=== PATIENT | female | born 1995 | race Caucasian/White ===

== ENCOUNTER 2018-04-14 05:59 | Day surgery (SDC) | payer OTHER ==
[2018-04-13 11:50] VITALS: BMI 26.9
[2018-04-14] MEDS ORDERED: Bacitracin Zinc Ointment 30 gm TUBE ONE (06:44)
[2018-04-14] MEDS ORDERED: Bupivacaine PF 0.5% 30 ML VIAL ONE (06:44)
[2018-04-14] MEDS ORDERED: Betamet Acet/Betamet Na Ph 30 MG/5 ML VIAL ONE (06:44)
[2018-04-14] MEDS ORDERED: PROPOFOL 0 ML ONE (06:51)
[2018-04-14] MEDS ORDERED: Fentanyl 100 MCG/2 ML VIAL ONE (06:51)
[2018-04-14] MEDS ORDERED: Midazolam HCl 2 mg/2 ml Vial ONE (07:33)
[2018-04-14] MEDS ORDERED: CEFAZOLIN/Water 2 GM/20 ML SYRINGE ONE (07:33)
[2018-04-14] MEDS ORDERED: Ketorolac Tromethamine 30 MG/ML VIAL ONE ×2 (08:52→09:11)
--- NOTE | 2018-04-14 11:23 | OP ---
DATE OF PROCEDURE: 04/14/2018 SURGEON: Dr. Moise Church ANESTHESIA: General LMA technique augmented by 20 mL 0.5% Marcaine block, 10 given before procedure and 10 given after repair incision technique. PREOPERATIVE DIAGNOSES: 1. Right wrist ganglion, dorsal. 2. Right wrist synovitis. POSTOPERATIVE DIAGNOSES: 1. Right wrist ganglion, dorsal. 2. Right wrist synovitis. FINDINGS: Approximately a 1 cm sessile ganglion cavity, connected to the confluence of the capitate lunate of scaphoid region. PROCEDURES PERFORMED: Arthrotomy right wrist with synovectomy limited to ganglion cystectomy, right wrist. SPECIMEN REMOVED: Ganglion cyst cavity sent to the lab as specimen. TOURNIQUET TIME: 11 minutes. COMPLICATIONS: None. INDICATIONS: Ganglion which comes and goes, was somewhat flattened today, but we knew from previous examination it was just opposite of Wilder's tubercle. Therefore, incision centered on this area. DESCRIPTION OF PROCEDURE: After successful general endotracheal anesthesia, the limb was prepped an d draped. Time out was done appropriately. We outlined the incision zigzag fashion, exsanguinated t he limb, inflated tourniquet to 250 mmHg pressure and gave the first 10 mL of 0.5% Marcaine. We then carried the incision through skin and subcutaneous tissues with an 11 blade knife until we re ached the extensor tendons and found by dissecting just over Wilder's tubercle, there was obvious Lis ter's tubercle just distal to the retinaculum was a bulge consistent with a ganglion cyst cavity. We dissected around it the tendon followed this down to where it was sessile 1 cm long, 4 mm wide and began to elevate it. The elevation led to a small capsule region where we made a 5 mm rent in the capsule just at the confluence of the scaphoid capitate and lunate. We then underneath saw s ome synovitis, did a synovectomy limited of the wrist open. We then deflated the tourniquet, irrigat ed obtained hemostasis. We sent the specimen of the synovitis and the cyst cavity to the lab. After 5 minutes of direct pressure, we obtained hemostasis with electrocautery, subcutaneously, close d only the skin with interrupted 4-0 nylon mattress pattern gave the remaining portion of the injecti on of the Marcaine in a ____ technique, placed a bacitracin, Adaptic, 4 x 4s, Kerlix under a palmar s plint and the patient left the operating room without evidence of anesthetic or operative complicatio n.
[2018-04-14 11:34] LABS: BHCG - Serum Negative (NEGATIVE); Pregs Control Background? CLEAR/WHITE (CLR/WHITE); Pregs Control Bar Appear? YES (CONTROL BAR)
[2018-04-14 11:35] LABS: Anion Gap 12 mmol/L (10-20); BUN (Urea Nitrogen) 10 mg/dL (7.0-18.7); Calc. Creatinine Clearance 137 mL/min (70-130); Calcium 9.2 mg/dL (7.8-10.44); Carbon Dioxide 22 mmol/L (22-29); Chloride 105 mmol/L (98-107); Estimated GFR-MDRD Greater than 90; Glucose 86 mg/dL (70-105); Potassium 3.8 mmol/L (3.5-5.1); Sodium 135 mmol/L (136-145)
[2018-04-14 12:00] LABS: White Blood Cell (WBC) Count 4.7 thou/uL (4.8-10.8)
[2018-04-14 12:01] LABS: #Lymphocytes 1.7 thou/uL (1.20-3.40); #Neutrophils 2.4 thou/uL (1.40-6.50); %Basophils 0.6 % (0.0-1.0); %Eosinophils 3.3 % (0.0-10.0); %Monocytes 9.1 % (0.0-10.0); %Neutrophils 50.1 % (42.0-75.0); Hemoglobin 14.1 g/dL (12.0-16.0); Mean Corpuscular HGB CONC 33.2 g/dL (32.0-36.0); Mean Corpuscular Hemoglobin 29.9 pg (27.0-31.0); Mean Platelet Volume 7.9 fL (7.4-10.4); Platelet Count 289 thou/uL (130-400); RBC Distribution Width 11.9 % (11.5-14.5); Red Blood Cell (RBC) Count 4.72 mill/uL (4.20-5.40)
[2018-04-14 12:02] LABS: #Eosinphils 0.2 thou/uL (0.0-0.7); #Monocytes 0.4 thou/uL (0.11-0.59)
[2018-04-14] MEDS ORDERED: diphenhydrAMINE 50 MG/ML VIAL ONE (13:14)
[2018-04-14] MEDS ORDERED: Metoclopramide HCl 10 MG/2 ML VIAL ONE (13:14)
[2018-04-14] MEDS ORDERED: Dexamethasone 20 MG/5 ML VIAL ONE (13:14)
[2018-04-14] MEDS ORDERED: Ondansetron HCl/PF 4 MG/2 ML Vial ONE (13:14)
[2018-04-14] MEDS ORDERED: Lidocaine 1% PF 5 ML VIAL ONE (13:14)
[2018-04-14] MEDS ORDERED: PROPOFOL 200 MG/20 ML VIAL ONE (13:14)
--- NOTE | 2018-04-15 12:38 | HP ---
DATE OF SERVICE: 04/14/2018 CHIEF COMPLAINT: Right wrist ganglion with swelling dorsally. HISTORY OF PRESENT ILLNESS: The patient reports a 6-month history of dorsal ganglion and swelling in the right wrist that has been persistent. She has had aspiration, has returned; had immobilization, returned; had anti-inflammatory, returned. The patient denies any numbness and tingling. PAST MEDICAL HISTORY: The patient is primary Telugu speaker. She does not smoke. Denies any histo ry of cardiac, pulmonary, neurological disease. Has no numbness or tingling, previous history of car pal tunnel, or neurologic disease distally at the upper extremity or digits. She has not had previou s ganglion before or any other wrist surgery. PHYSICAL EXAMINATION: On examination today, the patient has 60 degrees dorsiflexion, 70 degree s palmar flexion. She has subcutaneous fullness just opposite to the ulna. The Wilder's tubercle al mitzi the confluence of the capitate lunate and scaphoid consistent with what had been a previous gangl ion, but today only a boggy area without true fluctuance or abscess formation. There is no pain with tendon stretch. Extends in the thumb, all digits to include the extensor digiti minimi and extensor indicis proprius intact. There is no Tinel's over superficial radial nerve, superficial ulnar nerve , the median nerve in wrist, ulnar nerve in wrist, or ulnar nerve in the elbow. There is no weakness seen. She has full digital flexion and extension. Radiographs revealed no degenerative changes, cystic changes, or calcifications periarticular at the wrist. ASSESSMENT AND RECOMMENDATIONS: Ganglion cyst, flat today, but [facility], we believe we can find it and remove it in the interval Wilder's tubercle. The refore, she is scheduled for surgical intervention today.
== END 2018-04-14 10:20 | disposition home or self-care (01) ==
LOC: SDC 05:59
PROVIDERS: ATTEND Orthopaedic Surgery Hand Surgery
PROC: 0LB50ZZ Excision of Right Lower Arm and Wrist Tendon, Open Approach (ICD-10-PCS; principal; 2018-04-14)
DX: M67.431 Ganglion, right wrist (principal); M65.831 Other synovitis and tenosynovitis, right forearm
CPT/HCPCS: 80048; 84703; 85025; 88304; J0702; J1100; J1200; J1885; J2001; J2250; J2405; J2704; J2765; J3010; S0020

== ENCOUNTER 2020-05-12 18:06 | Day surgery (SDC) | payer OTHER ==
[2020-05-12 18:51] VITALS: BP 133/76; TEMP 98.1; BMI 34.4
[2020-05-12] MEDS ORDERED: hydrALAZINE 20 MG/ML VIAL SLOW IVP PRN (20:58)
[2020-05-12 21:34] LABS: Creatinine, Urine Less than 20.00 mg/dL (47-110); Protein, Urine Random Quant Less than 10 mg/dL (1-14)
--- NOTE | 2020-05-12 22:47 | PRG ---
DATE OF SERVICE: 05/12/2020 HISTORY OF PRESENT ILLNESS: The patient is a 24-year-old, G1, P0 female with an intrauterine at 37 weeks and 3 days, presenting to Labor and Delivery with concerns of elevated blood pressures at home that she reports have been as high as the 150s on multiple occasions. She denies headache, chest pain, abdominal pain, shortness of breath, sudden change in her weight or unusual swelling or vision changes. She denies fever, cough, nausea, vomiting, diarrhea, constipation, any new rashes, vaginal bleeding, leakage of fluid, urinary urgency, or frequency. PAST MEDICAL HISTORY: Negative. PAST SURGICAL HISTORY: She has had her wisdom teeth removed and has had a ganglion cyst removed. ALLERGIES: NO KNOWN DRUG ALLERGIES. MEDICATIONS: vitamins and iron. SOCIAL HISTORY: Denies drug, alcohol, or tobacco use. OB LABS: Unavailable at the time of dictation. REVIEW OF SYSTEMS: Per HPI. PHYSICAL EXAMINATION: VITAL SIGNS: Initial blood pressure 128/83, heart rate of 88, respiratory rate of 16, temperature 98.1, saturating 98% on room air. Over the subsequent 3 hours, the patient has had predominantly normal range of blood pressures in the one teens to 130s. She has had two blood pressures at 144 and 143, all diastolics have been within normal limits. GENERAL: The patient appears to be in no acute distress. She is alert, oriented, cooperative, and pleasant to interact with. HEAD: Normocephalic, atraumatic. LUNGS: Clear to auscultation bilaterally. HEART: Has a regular rate and rhythm. ABDOMEN: Gravid, soft, nontender. EXTREMITIES: Nontender, nonedematous. DTRs are 1+. No clonus. Cervical exam per nursing staff is 150 and -3 station. heart tracing shows the fetus with a baseline in the 150s with moderate long-term variability, positive 15 x 15 accelerations, no decelerations. Tocometer showing some irritability. Urine protein to creatinine ratio is incalculable as the protein is less than 10 and urine creatinine is less than 20. ASSESSMENT AND PLAN: The patient is a 24-year-old female with an intrauterine at 37 weeks and 3 days, having some elevated blood pressures at home. She has had no persistent pressures here and has had two mild range systolic pressures, one associated with coming back from the bathroom. The patient is otherwise asymptomatic and without proteinuria and an unfavorable cervix. The patient is being discharged home and will follow up with Dr. Rae on Friday. The patient has been reported out to Dr. Rae who has been aware of her visit. Job ID: [id number]
== END 2020-05-12 22:25 | disposition home health service, planned readmission (86) ==
LOC: L&D/OP 18:06
PROVIDERS: ATTEND Obstetrics & Gynecology
DX: O99.891 Other specified diseases and conditions complicating pregnancy (principal); R03.0 Elevated blood-pressure reading, without diagnosis of hypertension; Z3A.37 37 weeks gestation of pregnancy
CPT/HCPCS: 82570; 84156

== ENCOUNTER 2020-05-16 10:52 | Inpatient (IN) | payer OTHER ==
[2020-05-16] MEDS ORDERED: hydrALAZINE 20 MG/ML VIAL SLOW IVP PRN ×2 (11:30→18:21)
[2020-05-16] MEDS ORDERED: Promethazine HCl 25 MG/ML VIAL IM PRN ×2 (11:30→17:32)
[2020-05-16] MEDS ORDERED: Ondansetron PF 4 MG/2 ML Vial IVP PRN ×3 (11:30→18:21)
[2020-05-16] MEDS ORDERED: Bicitra 30 ML UDCUP PO SCH (11:30)
[2020-05-16] MEDS: Lactated Ringer's 1,000 ML IV SCH ×4 (11:30→23:37)
[2020-05-16 11:50] VITALS: BMI 34.4
[2020-05-16 12:18] LABS: Hemoglobin 12.4 g/dL (12.0-16.0); Mean Corpuscular HGB CONC 33.9 g/dL (32.0-36.0); Mean Corpuscular Hemoglobin 29.2 pg (27.0-31.0); Mean Corpuscular Volume 86.2 fL (78.0-98.0); Mean Platelet Volume 10.2 fL (7.4-10.4); Platelet Count 165 thou/uL (130-400); RBC Distribution Width 15.1 % (11.5-14.5); Red Blood Cell (RBC) Count 4.24 mill/uL (4.20-5.40); White Blood Cell (WBC) Count 6.1 thou/uL (4.8-10.8)
[2020-05-16 12:55] LABS: HBSAg Index 0.14 S/CO (0-0.99); Hep B Surf Ag Non-Reactive S/CO (NonReactive); Syphilis Antibody Nonreactive (Nonreactive); Syphilis Antibody Index 0.05 S/CO (<1.00 Non-Reactive)
[2020-05-16] MEDS ORDERED: CEFAZOLIN 2 GM in Premix Bag 1 BAG IVPB SCH (14:00)
[2020-05-16] MEDS ORDERED: PHENYLEPHRINE-NS 100 MCG/ML 10 ML SYRINGE ONE (16:15)
[2020-05-16] MEDS ORDERED: Morphine PF 10 MG/10 ML VIAL ONE (16:15)
[2020-05-16] MEDS ORDERED: Oxytocin 10 UNITS/ML VIAL ONE ×2 (16:15→18:17)
[2020-05-16] MEDS ORDERED: Ondansetron PF 4 MG/2 ML Vial ONE ×2 (16:29→20:42)
[2020-05-16] MEDS ORDERED: Scopolamine 1.5 mg/72 hour Patch ONE (16:29)
[2020-05-16] MEDS ORDERED: Famotidine/PF 20 mg/2ml Vial ONE (16:29)
[2020-05-16] MEDS ORDERED: Ketorolac Tromethamine 30 MG/ML VIAL ONE (17:27)
[2020-05-16] MEDS ORDERED: diphenhydrAMINE 50 MG/ML VIAL IVP PRN (17:32)
[2020-05-16] MEDS ORDERED: Promethazine HCl 25 MG SUPP PR PRN (17:32)
[2020-05-16] MEDS ORDERED: Naloxone HCl 0.4 mg/ml Vial IVP PRN ×2 (17:32)
[2020-05-16] MEDS ORDERED: L&D-Morphine 4 MG/ML VIAL SLOW IVP PRN (17:32)
[2020-05-16] MEDS ORDERED: HYDROmorphone 2 MG/ML VIAL SLOW IVP PRN (17:32)
[2020-05-16] MEDS ORDERED: Ondansetron HCl/PF 4 MG/2 ML Vial IVP PRN (17:32)
[2020-05-16] MEDS ORDERED: Meperidine HCl/PF 25 MG/ML VIAL SLOW IVP PRN (17:32)
[2020-05-16] MEDS ORDERED: Communication Order-Pharmacy FS SCH (17:45)
[2020-05-16] MEDS ORDERED: Acetaminophen 325 MG TAB PO PRN (18:21)
[2020-05-16] MEDS ORDERED: Misoprostol 200 MCG TAB PR PRN (18:21)
[2020-05-16] MEDS ORDERED: Bisacodyl 10 MG SUPP PR PRN (18:21)
[2020-05-16] MEDS ORDERED: Zolpidem Tartrate 5 MG TAB PO PRN (18:21)
[2020-05-16] MEDS ORDERED: Lanolin Ointment 7 GM TUBE TOP PRN (18:21)
[2020-05-16 19:12] LABS: SARS-CoV-2 MS2 Positive; SARS-CoV-2 N Gene Negative; SARS-CoV-2 S Gene Negative; SARS-CoV-2 by NAA Not Detected (NotDetected); SARS-CoV-2 orf1ab Negative
--- NOTE | 2020-05-16 22:44 | OP ---
DATE OF PROCEDURE: 05/16/2020 ATTENDING STAFF PHYSICIAN: Sarkis Rae MD SURGEON: Sarkis Rae MD RESIDENT SURGEON: Juno Cheng MD PREOPERATIVE DIAGNOSES: 1. Term intrauterine at 38 and 0/7 weeks. 2. Gestational hypertension. 3. Contracted pelvis. 4. Large for gestational age. POSTOPERATIVE DIAGNOSES: 1. Term intrauterine at 38 and 0/7 weeks. 2. Gestational hypertension. 3. Cephalopelvic disproportion. PROCEDURES PERFORMED: Primary low-transverse section. ANESTHESIA: Spinal catheterization. FINDINGS: 1. Gestational hypertension with preeclamptic features, including blood pressure, proteinuria, and symptoms. 2. Size greater than dates with estimated weight in excess of 8 pounds at 38 weeks. 3. 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 4. Vigorous male infant, 8 pounds 2 ounces. Apgars nine and 10. 5. Nuchal cord x2. 6. Thick meconium. 7. Cephalopelvic disproportion (CPD). COMPLICATIONS: None. SPECIMENS REMOVED: 1. Cord blood. 2. Placenta to pathology secondary to thick meconium and gestational hypertension. BLOOD LOSS: INDICATIONS: Mrs. Marina Villarreal is a very pleasant 24-year-old white female, G1, P0, who has followed my clinic for obstetric care. Over the last several weeks, Marina's blood pressures have been extremely labile. She was placed at bedrest and no work last week secondary to elevated blood pressures in the 140 to 150s over 90s. Over the weekend, she presented to Labor and Delivery for evaluation secondary to multiple pressures in the 150/90 range. She had trace protein. She was sent home to [facility], to follow up on 05/15/2020. In the office yesterday, her blood pressures were somewhat better measuring in the 130s to 140s over 90s. She did complain of some decreased movement and we had her come back this morning for testing. Her diastolic blood pressures this morning were in the 100s. She also had 2+ protein and a mild headache. Decision was made to proceed with delivery secondary to gestational hypertension with preeclamptic features. Marina had previously made a decision that she wanted to proceed with primary secondary to baby which was measuring large for gestational age and a very small contracted pelvis with some of the issues that were outlined above. She was sent to Labor and Delivery for further monitoring and evaluation and scheduled for primary delivery this evening. The patient and her had been counseled extensively and surgical disclosures have been signed and placed in the chart. Questions have been answered to their satisfaction. DESCRIPTION OF PROCEDURE: After thorough consent and counseling, Mrs. Villarreal was taken the operating room and adequate anesthesia was obtained via spinal catheterization. The patient was prepped and draped in the usual sterile fashion for abdominal surgery. A Bolivar was placed in the bladder, which was noted to be draining clear urine. A team time-out was performed per protocol. Attention was then turned to performing the primary low-transverse section. A Pfannenstiel incision was made, carried sharply to the fascia, which was also sharply incised. The midline was identified and the rectus muscles were retracted laterally. The abdominal peritoneal cavity was entered with usual safeguards carried out. A retractor was placed and a bladder flap was created on the vesicouterine peritoneum. A bladder blade was then placed. A low-transverse incision was made on the well-developed lower uterine segment. Upon entering the amniotic sac, a copious amount of thick meconium-stained fluid was noted. The baby was immediately bulb suctioned on the abdomen. Shoulders and body were then delivered in an atraumatic fashion. He had a double nuchal cord, so thick meconium-stained fluid. Head was delivered. Baby was bulb suctioned on the abdomen. Tight nuchal cord x2 was reduced. Shoulders and body were then delivered in an atraumatic fashion. The cord was doubly clamped and cut. The infant was urgently handed to the pediatric team in attendance for the delivery. The was a vigorous viable male weighing 8 pounds 2 ounces with Apgars of nine and 10 obtained at one and 5 minutes respectively. Cord blood was obtained. The placenta was manually removed from the uterus, will be sent to pathology secondary to thick meconium-stained fluid and gestational hypertension. The uterus was exteriorized and good tone was noted. The uterine cavity was cleared of any remaining clot and fluid. The low-transverse incision was closed with a running locking ligature normal chromic. Several [id number] ligatures were placed to facilitate strengthen hemostasis. The vesicouterine peritoneum was reapproximated to the lower segment with running ligature of 2-0 Monocryl suture. Once again, good tone and hemostasis were appreciated. The posterior cul-de-sac and gutters were cleared of clot and fluid. The sacrum was noted to be extremely prominent and the patient was noted to have an android pelvis with a very small outlet. A diagnosis of cephalopelvic disproportion was made, the uterus, fallopian tubes, and ovaries were inspected and noted to be hemostatic. Seprafilm was applied to the low-transverse incision and to the anterior aspect of the uterus for adhesion prevention. The uterus was returned to the abdomen and good tone hemostasis was once again noted. Lap, sponge, and needle counts were correct. The peritoneum was closed with a running ligature of 2-0 Vicryl suture. Rectus muscles were reapproximated in the midline with interrupted ligatures of 2-0 Vicryl suture. The fascia was closed with two ligatures of 0 Vicryl suture which were tied in the midline. Good fascial integrity was noted. The incision was irrigated with copious amount of warm normal saline. Hemostasis was obtained with Bovie cauterization. The subcutaneous tissue was then closed with interrupted ligatures of 2-0 plain. The skin was closed with a subcuticular stitch of 4-0 Monocryl. Incision was then dressed with Dermabond. A pressure dressing and ice packs were subsequently placed. Lap, sponge, and needle counts were correct x3. Team debriefing was performed. The patient was taken to the recovery room in good condition. Immediately following surgery, the patient and family were made aware of the surgical procedure and operative findings. The baby was returned to [facility] in the recovery room for [id number] contact and . The patient and her were very appreciative of the care rendered here at [facility] this evening. Questions were answered to the patient's family satisfaction. We discussed in detail the findings of thick meconium-stained fluid, nuchal cord, and the diagnosis of cephalopelvic disproportion (CPD) on future deliveries. The patient and her were very appreciative of the care rendered here this evening. Job ID: [id number]
[2020-05-16] MEDS: Docusate Calcium (SURFAK) 240 MG CAP PO SCH (22:55)
[2020-05-16] MEDS: Ferrous Sulfate 325 MG TAB PO SCH (22:56)
[2020-05-16] MEDS: Ketorolac Tromethamine 30 MG/ML VIAL IVP PRN (23:36)
[2020-05-16] MEDS: diphenhydrAMINE 25 MG CAP PO PRN (23:36)
[2020-05-17] MEDS ORDERED: HYDROcodone/Acetaminophen 5/325 mg Tablet PO PRN (05:45)
[2020-05-17] MEDS ORDERED: Meperidine HCl/PF 25 MG/ML VIAL IM PRN (05:45)
[2020-05-17] MEDS: diphenhydrAMINE 25 MG CAP PO PRN ×3 (05:49→19:55)
[2020-05-17 06:07] LABS: Hemoglobin 11.9 g/dL (12.0-16.0); Mean Corpuscular HGB CONC 33.5 g/dL (32.0-36.0); Mean Corpuscular Hemoglobin 28.9 pg (27.0-31.0); Mean Corpuscular Volume 86.2 fL (78.0-98.0); Mean Platelet Volume 10.7 fL (7.4-10.4); Platelet Count 171 thou/uL (130-400); RBC Distribution Width 15.1 % (11.5-14.5); White Blood Cell (WBC) Count 12.4 thou/uL (4.8-10.8)
[2020-05-17] MEDS: Ketorolac Tromethamine 30 MG/ML VIAL IVP PRN (08:04)
[2020-05-17] MEDS: Docusate Calcium (SURFAK) 240 MG CAP PO SCH ×2 (08:12→21:42)
[2020-05-17] MEDS: Prenatal Vitamin 1 TAB PO SCH (08:12)
[2020-05-17] MEDS: Ferrous Sulfate 325 MG TAB PO SCH ×2 (08:28→21:43)
[2020-05-17] MEDS: Lactated Ringer's 1,000 ML IV SCH ×2 (08:28→19:32)
[2020-05-17] MEDS ORDERED: Adacel (T-DAP) 0.5 ML SYRINGE IM ONE (09:00)
[2020-05-17] MEDS: Simethicone Chewable 80 MG TAB PO PRN (10:00)
[2020-05-17] MEDS: HYDROcodone/Acetaminophen 5/325 mg Tablet PO PRN ×3 (10:00→19:52)
[2020-05-17] MEDS: Naloxone HCl 0.4 mg/ml Vial IV PRN ×4 (14:17→14:59)
[2020-05-17] MEDS ORDERED: Sodium Chloride 0.9% 10 ML ONE (14:58)
[2020-05-17] MEDS: Ibuprofen 800 MG TAB PO SCH (21:42)
[2020-05-18] MEDS: Lactated Ringer's 1,000 ML IV SCH ×2 (02:07→12:11)
[2020-05-18] MEDS: HYDROcodone/Acetaminophen 5/325 mg Tablet PO PRN ×3 (03:57→14:35)
[2020-05-18] MEDS: Simethicone Chewable 80 MG TAB PO PRN ×2 (03:57→09:19)
[2020-05-18] MEDS: Ibuprofen 800 MG TAB PO SCH ×2 (05:37→14:32)
[2020-05-18] MEDS ORDERED: Ibuprofen 800 MG TAB PO SCH (06:00)
[2020-05-18] MEDS: Ferrous Sulfate 325 MG TAB PO SCH (09:17)
[2020-05-18] MEDS: Prenatal Vitamin 1 TAB PO SCH (09:19)
[2020-05-18] MEDS: Docusate Calcium (SURFAK) 240 MG CAP PO SCH (09:21)
[2020-05-18 16:40] VITALS: BP 131/75; TEMP 98.5
== END 2020-05-18 16:55 | disposition home or self-care (01) | DRG 788 ==
LOC: L&D-LIB 10:52 → 3SW 21:31 → EDSTATUS 06-03 12:30
PROVIDERS: ADMIT Obstetrics & Gynecology; ATTEND Obstetrics & Gynecology
PROC: 10D00Z1 Extraction of Products of Conception, Low, Open Approach (ICD-10-PCS; principal; 2020-05-16)
DX: O14.94 Unspecified pre-eclampsia, complicating childbirth (principal); Z20.828 Contact with and (suspected) exposure to other viral communicable diseases; Z3A.38 38 weeks gestation of pregnancy; Z37.0 Single live birth; O36.63X0 Maternal care for excessive fetal growth, third trimester, not applicable or unspecified; O33.9 Maternal care for disproportion, unspecified; O69.1XX0 Labor and delivery complicated by cord around neck, with compression, not applicable or unspecified; O77.0 Labor and delivery complicated by meconium in amniotic fluid
CPT/HCPCS: 36415; 51702; 85027; 86780; 86850; 86900; 86901; 87340; 87635; J1885; J2270; J2310; J2405; Q0163; S0028; U0003